=== PATIENT | male | born 1945 | race Caucasian/White ===

== ENCOUNTER 2022-12-14 09:36 | Inpatient (IN) ==
[2022-12-14] MEDS ORDERED: IOPAMIDOL 100 ML BOTTLE IV ONE (09:37)
[2022-12-14] MEDS ORDERED: ONDANSETRON 4 MG/2 ML VIAL IV ONE (10:14)
[2022-12-14] MEDS ORDERED: 0.9 % SODIUM CHLORIDE 1,000 ML IV ONE (10:14)
[2022-12-14 10:38] LABS: POC Calcium, Ionized 1.17 (1.16-1.32); POC Creatinine 1.2 (0.6-1.2); POC Potassium 4.3 (3.3-5.1)
[2022-12-14 11:52] LABS: Basophils # (Auto) 0.01 K/mcL (0.00-0.30); Basophils % (Auto) 0.3 % (0.0-2.0); Eosinophils # (Auto) 0.01 K/mcL (0.00-0.70); Eosinophils % (Auto) 0.3 % (0.0-7.0); Hematocrit 47.8 % (40.1-51.0); Hemoglobin 15.8 g/dL (13.7-17.5); Lymphocytes # (Auto) 0.78 K/mcL (1.50-4.80); Lymphocytes % (Auto) 19.7 % (15.5-49.0); Mean Cell Volume 87.7 fL (80.0-100.0); Mean Corpuscular HGB Conc 33.1 g/dL (31.0-36.0); Mean Platelet Volume 10.9 fL (8.8-12.5); Monocytes # (Auto) 0.83 K/mcL (0.10-0.90); Neutrophils % (Auto) 58.7 % (38.0-78.0); Platelet Count 246 K/mcL (140-440); RBC 5.45 M/mcL (4.63-6.08); Red Cell Distribution Width 13.5 % (11.5-14.5)
[2022-12-14] MEDS ORDERED: OMEPRAZOLE 20 MG CAPSULE PO ONE (11:56)
[2022-12-14] MEDS ORDERED: PROMETHAZINE 25 MG/ML VIAL IV PRN (15:29)
[2022-12-14] MEDS ORDERED: ONDANSETRON 4 MG/2 ML VIAL IV PRN (15:29)
[2022-12-14] MEDS ORDERED: HYDROmorphone 1 MG/ML SYRINGE IV PRN (15:29)
[2022-12-14] MEDS: PANTOPRAZOLE 40 MG VIAL IV SCH (18:30)
[2022-12-14] MEDS: METOCLOPRAMIDE 10 MG/2 ML VIAL IV SCH ×2 (19:32→23:31)
[2022-12-14] MEDS: 0.9 % SODIUM CHLORIDE 1,000 ML IV SCH ×2 (19:32→23:31)
[2022-12-14] MEDS: 0.9 % SODIUM CHLORIDE 10 ML SYRINGE IV SCH (23:31)
[2022-12-15] MEDS: METOCLOPRAMIDE 10 MG/2 ML VIAL IV SCH ×4 (05:03→23:42)
[2022-12-15] MEDS: 0.9 % SODIUM CHLORIDE 10 ML SYRINGE IV SCH ×3 (05:05→23:39)
[2022-12-15] MEDS: PANTOPRAZOLE 40 MG VIAL IV SCH ×2 (06:57→17:20)
[2022-12-15 07:30] LABS: ALT/SGPT 14 U/L (<40); AST/SGOT 15 U/L (<40); Albumin 3.9 gm/dL (3.2-5.2); Albumin/Globulin Ratio 1.3 (1.0-2.3); Alkaline Phosphatase 59 U/L (39-117); Bilirubin,Direct 0.4 mg/dL (<0.3); Bilirubin,Total 1.6 mg/dL (0.1-1.0); Blood Urea Nitrogen 23 mg/dL (8-23); Calcium 8.9 mg/dL (8.6-10.4); Carbon Dioxide 25 mmol/L (22-30); Chloride 98 mmol/L (96-108); Glomerular Filtration Rate 65; Glucose 86 mg/dL (70-105); Lactate Dehydrogenase 187 U/L (135-225); Phosphorous 3.2 mg/dL (2.5-4.5); Triglycerides 100 mg/dL (<150); Uric Acid 7.3 mg/dL (2.5-8.0)
[2022-12-15 09:18] LABS: Basophils # (Auto) 0.02 K/mcL (0.00-0.30); Basophils % (Auto) 0.3 % (0.0-2.0); Eosinophils # (Auto) 0.07 K/mcL (0.00-0.70); Hematocrit 45.3 % (40.1-51.0); Hemoglobin 14.8 g/dL (13.7-17.5); Lymphocytes # (Auto) 1.13 K/mcL (1.50-4.80); Lymphocytes % (Auto) 15.8 % (15.5-49.0); Mean Cell Volume 89.7 fL (80.0-100.0); Mean Corpuscular HGB Conc 32.7 g/dL (31.0-36.0); Mean Platelet Volume 11.1 fL (8.8-12.5); Monocytes # (Auto) 1.27 K/mcL (0.10-0.90); Monocytes % (Auto) 17.8 % (1.0-12.0); Platelet Count 215 K/mcL (140-440); RBC 5.05 M/mcL (4.63-6.08); Red Cell Distribution Width 13.5 % (11.5-14.5); WBC 7.1 K/mcL (4.5-11.0)
[2022-12-15] MEDS: 0.9 % SODIUM CHLORIDE 1,000 ML IV SCH ×4 (11:19→23:39)
[2022-12-16] MEDS: 0.9 % SODIUM CHLORIDE 1,000 ML IV SCH ×4 (03:36→20:57)
[2022-12-16] MEDS ORDERED: IPRATROPIUM/ALBUTEROL 3 ML AMPUL.NEB NEB PRN ×2 (05:00→12:06)
[2022-12-16] MEDS ORDERED: SCOPOLAMINE 1 PATCH PATCH TOPICAL PRN (05:00)
[2022-12-16] MEDS ORDERED: metroNIDAZOLE 500 MG/100 ML BAG IV SCH (06:00)
[2022-12-16] MEDS ORDERED: LEVOFLOXACIN 750 MG/150 ML BAG IV SCH (06:00)
[2022-12-16] MEDS: METOCLOPRAMIDE 10 MG/2 ML VIAL IV SCH ×4 (06:10→23:39)
[2022-12-16] MEDS: PANTOPRAZOLE 40 MG VIAL IV SCH ×2 (06:48→17:26)
[2022-12-16] MEDS: 0.9 % SODIUM CHLORIDE 10 ML SYRINGE IV SCH ×3 (06:48→20:57)
[2022-12-16 07:10] LABS: Basophils # (Auto) 0.02 K/mcL (0.00-0.30); Basophils % (Auto) 0.3 % (0.0-2.0); Eosinophils # (Auto) 0.08 K/mcL (0.00-0.70); Eosinophils % (Auto) 1.3 % (0.0-7.0); Hematocrit 41.9 % (40.1-51.0); Hemoglobin 13.4 g/dL (13.7-17.5); Lymphocytes # (Auto) 1.08 K/mcL (1.50-4.80); Lymphocytes % (Auto) 18.2 % (15.5-49.0); Mean Cell Volume 90.9 fL (80.0-100.0); Monocytes # (Auto) 0.92 K/mcL (0.10-0.90); Monocytes % (Auto) 15.5 % (1.0-12.0); Neutrophils % (Auto) 64.4 % (38.0-78.0); Platelet Count 185 K/mcL (140-440); RBC 4.61 M/mcL (4.63-6.08); Red Cell Distribution Width 13.4 % (11.5-14.5)
[2022-12-16 07:28] LABS: ALT/SGPT 11 U/L (<40); AST/SGOT 11 U/L (<40); Albumin 3.6 gm/dL (3.2-5.2); Albumin/Globulin Ratio 1.5 (1.0-2.3); Alkaline Phosphatase 55 U/L (39-117); Bilirubin,Direct 0.4 mg/dL (<0.3); Bilirubin,Total 1.2 mg/dL (0.1-1.0); Blood Urea Nitrogen 18 mg/dL (8-23); Calcium 8.4 mg/dL (8.6-10.4); Carbon Dioxide 19 mmol/L (22-30); Chloride 101 mmol/L (96-108); Globulin 2.4 gm/dL (2.2-3.7); Glomerular Filtration Rate 87; Glucose 70 mg/dL (70-105); Lactate Dehydrogenase 166 U/L (135-225); Phosphorous 2.6 mg/dL (2.5-4.5); Triglycerides 96 mg/dL (<150); Uric Acid 8.3 mg/dL (2.5-8.0)
[2022-12-16] MEDS ORDERED: ROCURONIUM 10 MG/ML ML IV ONE (09:51)
[2022-12-16] MEDS ORDERED: fentaNYL 100 MCG/2 ML VIAL IV ONE (09:51)
[2022-12-16] MEDS ORDERED: PROPOFOL 200 MG/20 ML VIAL IV ONE (09:51)
[2022-12-16] MEDS ORDERED: LIDOCAINE 2% PF 5 ML VIAL ONE (09:53)
[2022-12-16] MEDS ORDERED: BUPIVACAINE PF 0.5% 10 ML VIAL ONE ×2 (09:55→09:57)
[2022-12-16] MEDS ORDERED: DEXAMETHASONE 10 MG/ML VIAL ONE (09:59)
[2022-12-16] MEDS ORDERED: DEXMEDETOMIDINE HCL 200 MCG/2 ML VIAL ONE (09:59)
[2022-12-16] MEDS ORDERED: PHENYLephrine 1 MG/10 ML SYRINGE (ANEST) ONE (10:36)
[2022-12-16] MEDS ORDERED: ePHEDrine 50 MG/5 ML SYRINGE (ANEST) IV ONE (11:18)
[2022-12-16] MEDS ORDERED: ONDANSETRON 4 MG/2 ML VIAL ONE (11:24)
[2022-12-16] MEDS ORDERED: SUGAMMADEX SODIUM 200 MG/2 ML VIAL IV ONE (11:43)
[2022-12-16] MEDS ORDERED: metroNIDAZOLE 500 MG/100 ML BAG IV ONE (12:00)
[2022-12-16] MEDS ORDERED: ACETAMINOPHEN 1,000 MG/100 ML BAG IV ONE (12:06)
[2022-12-16] MEDS ORDERED: fentaNYL 100 MCG/2 ML VIAL IV PRN (12:06)
[2022-12-16] MEDS ORDERED: ONDANSETRON 4 MG/2 ML VIAL IV PRN (12:06)
[2022-12-16] MEDS ORDERED: NALOXONE HCL 0.4 MG/ML VIAL IV PRN (12:06)
[2022-12-16] MEDS: metroNIDAZOLE 500 MG/100 ML BAG IV SCH ×2 (17:26→23:52)
[2022-12-16] MEDS: fentaNYL 100 MCG/2 ML VIAL IV PRN ×2 (21:44→23:40)
[2022-12-17] MEDS ORDERED: fentaNYL 100 MCG/2 ML VIAL IV PRN (00:13)
[2022-12-17] MEDS ORDERED: ACETAMINOPHEN 1,000 MG/100 ML BAG IV ONE (00:38)
[2022-12-17] MEDS: ACETAMINOPHEN 1,000 MG/100 ML BAG IV SCH ×4 (00:58→19:07)
[2022-12-17] MEDS: metroNIDAZOLE 500 MG/100 ML BAG IV SCH ×4 (05:55→23:47)
[2022-12-17] MEDS: 0.9 % SODIUM CHLORIDE 10 ML SYRINGE IV SCH ×4 (05:55→23:27)
[2022-12-17] MEDS: METOCLOPRAMIDE 10 MG/2 ML VIAL IV SCH ×4 (05:55→23:45)
[2022-12-17] MEDS: 0.9 % SODIUM CHLORIDE 1,000 ML IV SCH ×2 (06:00→17:41)
[2022-12-17 06:24] LABS: Basophils # (Auto) 0.01 K/mcL (0.00-0.30); Basophils % (Auto) 0.1 % (0.0-2.0); Eosinophils # (Auto) 0.02 K/mcL (0.00-0.70); Eosinophils % (Auto) 0.3 % (0.0-7.0); Hematocrit 39.7 % (40.1-51.0); Hemoglobin 12.7 g/dL (13.7-17.5); Lymphocytes # (Auto) 0.98 K/mcL (1.50-4.80); Lymphocytes % (Auto) 12.6 % (15.5-49.0); Mean Cell Volume 89.8 fL (80.0-100.0); Monocytes # (Auto) 0.98 K/mcL (0.10-0.90); Monocytes % (Auto) 12.6 % (1.0-12.0); Neutrophils % (Auto) 73.9 % (38.0-78.0); Platelet Count 190 K/mcL (140-440); RBC 4.42 M/mcL (4.63-6.08); WBC 7.8 K/mcL (4.5-11.0)
[2022-12-17] MEDS: PANTOPRAZOLE 40 MG VIAL IV SCH ×2 (06:51→17:41)
[2022-12-17] MEDS: LEVOFLOXACIN 750 MG/150 ML BAG IV SCH (10:38)
[2022-12-17 16:25] LABS: ALT/SGPT 9 U/L (<40); AST/SGOT 15 U/L (<40); Albumin 2.9 gm/dL (3.2-5.2); Albumin/Globulin Ratio 1.2 (1.0-2.3); Alkaline Phosphatase 46 U/L (39-117); Bilirubin,Direct 0.2 mg/dL (<0.3); Bilirubin,Total 0.6 mg/dL (0.1-1.0); Blood Urea Nitrogen 11 mg/dL (8-23); Calcium 8.3 mg/dL (8.6-10.4); Carbon Dioxide 18 mmol/L (22-30); Chloride 100 mmol/L (96-108); Globulin 2.5 gm/dL (2.2-3.7); Glomerular Filtration Rate 87; Glucose 93 mg/dL (70-105); Lactate Dehydrogenase 253 U/L (135-225); Phosphorous 2.6 mg/dL (2.5-4.5); Triglycerides 54 mg/dL (<150); Uric Acid 7.5 mg/dL (2.5-8.0)
[2022-12-18] MEDS: ACETAMINOPHEN 1,000 MG/100 ML BAG IV SCH ×4 (00:45→17:36)
[2022-12-18] MEDS: 0.9 % SODIUM CHLORIDE 1,000 ML IV SCH ×3 (03:46→15:33)
[2022-12-18] MEDS: METOCLOPRAMIDE 10 MG/2 ML VIAL IV SCH ×3 (05:43→17:19)
[2022-12-18] MEDS: metroNIDAZOLE 500 MG/100 ML BAG IV SCH ×4 (05:43→23:23)
[2022-12-18] MEDS: 0.9 % SODIUM CHLORIDE 10 ML SYRINGE IV SCH ×4 (05:48→22:59)
[2022-12-18 06:34] LABS: Basophils # (Auto) 0.02 K/mcL (0.00-0.30); Basophils % (Auto) 0.2 % (0.0-2.0); Eosinophils % (Auto) 1.2 % (0.0-7.0); Hematocrit 38.9 % (40.1-51.0); Hemoglobin 12.8 g/dL (13.7-17.5); Lymphocytes # (Auto) 1.14 K/mcL (1.50-4.80); Lymphocytes % (Auto) 13.1 % (15.5-49.0); Mean Cell Volume 87.8 fL (80.0-100.0); Mean Corpuscular HGB Conc 32.9 g/dL (31.0-36.0); Mean Platelet Volume 10.9 fL (8.8-12.5); Monocytes # (Auto) 0.81 K/mcL (0.10-0.90); Monocytes % (Auto) 9.3 % (1.0-12.0); Neutrophils % (Auto) 75.6 % (38.0-78.0); Platelet Count 199 K/mcL (140-440); RBC 4.43 M/mcL (4.63-6.08); Red Cell Distribution Width 13.1 % (11.5-14.5); WBC 8.7 K/mcL (4.5-11.0)
[2022-12-18 07:09] LABS: ALT/SGPT 10 U/L (<40); AST/SGOT 12 U/L (<40); Albumin/Globulin Ratio 1.3 (1.0-2.3); Alkaline Phosphatase 46 U/L (39-117); Bilirubin,Direct < 0.2 mg/dL (0-0.3); Bilirubin,Total 0.5 mg/dL (0.1-1.0); Blood Urea Nitrogen 7 mg/dL (8-23); Calcium 7.7 mg/dL (8.6-10.4); Carbon Dioxide 21 mmol/L (22-30); Chloride 96 mmol/L (96-108); Globulin 2.3 gm/dL (2.2-3.7); Glomerular Filtration Rate 98; Glucose 74 mg/dL (70-105); Lactate Dehydrogenase 202 U/L (135-225); Phosphorous 1.9 mg/dL (2.5-4.5); Triglycerides 81 mg/dL (<150); Uric Acid 7.6 mg/dL (2.5-8.0)
[2022-12-18] MEDS: LEVOFLOXACIN 750 MG/150 ML BAG IV SCH (08:46)
[2022-12-18] MEDS: PANTOPRAZOLE 40 MG VIAL IV SCH ×2 (08:47→17:19)
[2022-12-18] MEDS ORDERED: MAGNESIUM SULFATE 4 GM/100 ML BAG IV ONE (13:22)
[2022-12-18] MEDS: POTASSIUM PHOSPHATE 40 MEQ in DEXTROSE 5% IN WATER 500 ML IV SCH ×2 (14:06→18:29)
[2022-12-19] MEDS: METOCLOPRAMIDE 10 MG/2 ML VIAL IV SCH ×4 (00:05→18:02)
[2022-12-19] MEDS: 0.9 % SODIUM CHLORIDE 10 ML SYRINGE IV SCH ×4 (00:05→20:55)
[2022-12-19] MEDS: ACETAMINOPHEN 1,000 MG/100 ML BAG IV SCH ×4 (00:31→18:03)
[2022-12-19] MEDS: 0.9 % SODIUM CHLORIDE 1,000 ML IV SCH ×3 (03:17→15:20)
[2022-12-19] MEDS: metroNIDAZOLE 500 MG/100 ML BAG IV SCH ×3 (06:33→18:08)
[2022-12-19] MEDS: PANTOPRAZOLE 40 MG VIAL IV SCH ×2 (08:18→18:02)
[2022-12-19] MEDS: LEVOFLOXACIN 750 MG/150 ML BAG IV SCH (08:19)
[2022-12-20] MEDS: metroNIDAZOLE 500 MG/100 ML BAG IV SCH ×4 (00:43→17:21)
[2022-12-20] MEDS: METOCLOPRAMIDE 10 MG/2 ML VIAL IV SCH ×3 (00:43→12:11)
[2022-12-20] MEDS: ACETAMINOPHEN 1,000 MG/100 ML BAG IV SCH ×3 (00:44→12:10)
[2022-12-20] MEDS: 0.9 % SODIUM CHLORIDE 1,000 ML IV SCH ×4 (01:58→14:19)
[2022-12-20] MEDS: 0.9 % SODIUM CHLORIDE 10 ML SYRINGE IV SCH ×3 (06:13→20:39)
[2022-12-20 07:13] LABS: Basophils # (Auto) 0.03 K/mcL (0.00-0.30); Basophils % (Auto) 0.4 % (0.0-2.0); Eosinophils # (Auto) 0.26 K/mcL (0.00-0.70); Eosinophils % (Auto) 3.6 % (0.0-7.0); Hematocrit 36.8 % (40.1-51.0); Hemoglobin 12.3 g/dL (13.7-17.5); Lymphocytes # (Auto) 1.71 K/mcL (1.50-4.80); Lymphocytes % (Auto) 23.7 % (15.5-49.0); Mean Cell Volume 87.4 fL (80.0-100.0); Mean Corpuscular HGB Conc 33.4 g/dL (31.0-36.0); Mean Platelet Volume 10.7 fL (8.8-12.5); Monocytes # (Auto) 0.68 K/mcL (0.10-0.90); Monocytes % (Auto) 9.4 % (1.0-12.0); Neutrophils % (Auto) 61.5 % (38.0-78.0); Platelet Count 256 K/mcL (140-440); RBC 4.21 M/mcL (4.63-6.08); Red Cell Distribution Width 13.2 % (11.5-14.5); WBC 7.2 K/mcL (4.5-11.0)
[2022-12-20 07:40] LABS: ALT/SGPT 16 U/L (<40); AST/SGOT 23 U/L (<40); Albumin 2.8 gm/dL (3.2-5.2); Albumin/Globulin Ratio 1.1 (1.0-2.3); Alkaline Phosphatase 39 U/L (39-117); Bilirubin,Direct < 0.2 mg/dL (0-0.3); Bilirubin,Total 0.4 mg/dL (0.1-1.0); Blood Urea Nitrogen 6 mg/dL (8-23); Carbon Dioxide 26 mmol/L (22-30); Chloride 100 mmol/L (96-108); Globulin 2.5 gm/dL (2.2-3.7); Glomerular Filtration Rate 92; Glucose 87 mg/dL (70-105); Lactate Dehydrogenase 205 U/L (135-225); Phosphorous 2.5 mg/dL (2.5-4.5); Triglycerides 101 mg/dL (<150); Uric Acid 6.4 mg/dL (2.5-8.0)
[2022-12-20] MEDS: LEVOFLOXACIN 750 MG/150 ML BAG IV SCH (07:53)
[2022-12-20] MEDS: PANTOPRAZOLE 40 MG VIAL IV SCH (07:53)
[2022-12-20] MEDS: METOCLOPRAMIDE 10 MG TABLET PO SCH ×2 (17:20→20:39)
[2022-12-20] MEDS: PANTOPRAZOLE 40 MG TABLET PO SCH (17:20)
[2022-12-20] MEDS ORDERED: ACETAMINOPHEN 325 MG TABLET PO PRN (18:00)
[2022-12-21] MEDS: metroNIDAZOLE 500 MG/100 ML BAG IV SCH ×3 (00:11→11:25)
[2022-12-21] MEDS: 0.9 % SODIUM CHLORIDE 10 ML SYRINGE IV SCH (05:10)
[2022-12-21 07:26] LABS: ALT/SGPT 27 U/L (<40); AST/SGOT 38 U/L (<40); Albumin 3.1 gm/dL (3.2-5.2); Albumin/Globulin Ratio 1.3 (1.0-2.3); Alkaline Phosphatase 38 U/L (39-117); Bilirubin,Direct < 0.2 mg/dL (0-0.3); Bilirubin,Total 0.4 mg/dL (0.1-1.0); Blood Urea Nitrogen 6 mg/dL (8-23); Calcium 8.4 mg/dL (8.6-10.4); Carbon Dioxide 27 mmol/L (22-30); Chloride 97 mmol/L (96-108); Globulin 2.4 gm/dL (2.2-3.7); Glomerular Filtration Rate 87; Glucose 95 mg/dL (70-105); Lactate Dehydrogenase 216 U/L (135-225); Triglycerides 116 mg/dL (<150); Uric Acid 6.3 mg/dL (2.5-8.0)
[2022-12-21] MEDS: METOCLOPRAMIDE 10 MG TABLET PO SCH ×2 (07:33→11:25)
[2022-12-21] MEDS: PANTOPRAZOLE 40 MG TABLET PO SCH (07:33)
[2022-12-21 07:34] LABS: Basophils # (Auto) 0.02 K/mcL (0.00-0.30); Basophils % (Auto) 0.2 % (0.0-2.0); Eosinophils # (Auto) 0.33 K/mcL (0.00-0.70); Eosinophils % (Auto) 4.1 % (0.0-7.0); Hematocrit 37.1 % (40.1-51.0); Hemoglobin 12.6 g/dL (13.7-17.5); Lymphocytes # (Auto) 1.81 K/mcL (1.50-4.80); Lymphocytes % (Auto) 22.5 % (15.5-49.0); Mean Cell Volume 85.7 fL (80.0-100.0); Monocytes # (Auto) 0.73 K/mcL (0.10-0.90); Monocytes % (Auto) 9.1 % (1.0-12.0); Neutrophils % (Auto) 62.7 % (38.0-78.0); Platelet Count 283 K/mcL (140-440); RBC 4.33 M/mcL (4.63-6.08); Red Cell Distribution Width 13.2 % (11.5-14.5); WBC 8.1 K/mcL (4.5-11.0)
[2022-12-21] MEDS: LEVOFLOXACIN 750 MG/150 ML BAG IV SCH (09:22)
[2022-12-21 10:58] VITALS: O2SAT 95
[2022-12-21 12:01] VITALS: TEMP 97.8
== END 2022-12-21 14:18 | disposition home or self-care (01) | DRG 336 ==
LOC: ED 09:36 → MEDSUR 17:50 → ICU 12-16 19:29
PROVIDERS: ADMIT Family Medicine Adult Medicine; ATTEND Family Medicine Adult Medicine